=== PATIENT | male | born 1950 ===

== ENCOUNTER → 2020-09-20 15:03 | Outpatient (CLI) | payer MEDICARE, SELFPAY ==
--- NOTE | ~2020-09-20 | US_ITS ---
EXAMINATION: US soft tissue head and neck DATE: 09/20/2020 15:24 INDICATION: Neck mass. TECHNIQUE: Multiple grayscale and Doppler ultrasound images of the neck were obtained. COMPARISON: None FINDINGS: There is no abnormal mass or lymphadenopathy in the patient's area of concern in the left n osito. IMPRESSION: 1. No abnormal mass or lymphadenopathy in the patient's area of concern in the left neck. Reviewed, dictated and finalized at location A.
== END ==
PROVIDERS: PCP Physician Assistant; Visit Provider Physician Assistant
DX: R22.1 Localized swelling, mass and lump, neck (principal)
CPT/HCPCS: 76536